=== PATIENT | female | born 1945 | race Caucasian/White ===

== ENCOUNTER 2022-07-04 23:32 | Emergency (ER) | payer MEDICARE ==
[2022-07-05 00:22] VITALS: BMI 21.7
[2022-07-05] MEDS ORDERED: DIPHTH,PERTUSS(ACELL),TET 0.5 ML DISP.SYRIN IM ONE ×2 (00:24→01:24)
[2022-07-05 02:07] LABS: BASO % 0.6 % (0-2.0); EOS % 1.6 % (0-4.5); HEMOGLOBIN 15.5 GM/dL (10.7-15.3); LYMPH % 30.8 % (8-40); MCH 27.8 pg (25.7-33.7); MEAN CELL VOLUME 84.3 fl (80-96); MEAN PLT VOLUME 9.1 fl (7.5-11.1); MONO % 10.4 % (3.8-10.2); NEUT % 56.6 % (42.8-82.8); PLATELET COUNT 222 10^3/uL (134-434); RBC 5.58 M/mm3 (3.60-5.2); RDW 16.3 % (11.6-15.6); WHITE BLOOD COUNT 9.6 K/mm3 (4.0-10.0)
[2022-07-05 02:11] LABS: ALBUMIN 2.9 g/dl (3.4-5.0); BLOOD UREA NITROGEN 8.5 mg/dL (7-18); CALCIUM 9.4 mg/dL (8.5-10.1)
[2022-07-05 02:14] LABS: CREATININE 0.6 mg/dL (0.55-1.3)
[2022-07-05 02:15] LABS: INR 1.03 (0.83-1.09); PROTHROMBIN TIME (PATIENT) 11.9 SEC (9.7-13.0)
[2022-07-05 02:16] LABS: BILIRUBIN,TOTAL 0.6 mg/dL (0.2-1); TOT PROT 6.5 g/dl (6.4-8.2)
[2022-07-05 06:45] VITALS: BP 127/63; PULSE 65; RESP 15; TEMP 97.9
== END 2022-07-05 11:30 | disposition home or self-care (01) ==
LOC: JER 23:32
PROC: 3E0234Z Introduction of Serum, Toxoid and Vaccine into Muscle, Percutaneous Approach (ICD-10-PCS; principal; 2022-07-04)
DX: R51.9 Headache, unspecified (principal); W19.XXXA Unspecified fall, initial encounter
CPT/HCPCS: 36415; 70450-TC; 70486-TC; 71045-TC-FY; 72125-TC; 72170-TC-FY; 80053; 84484; 85025; 85610; 85730; 86900; 90471; 90715; 93005; 93010; 99285-25